=== PATIENT | male | born 1970 | race Two or more races ===

== ENCOUNTER → 2016-12-07 | Outpatient (CLI) | payer BC ==
--- NOTE | 2016-12-07 16:25 | CT ---
EXAMINATION TYPE: CT abdomen pelvis wo con DATE OF EXAM: 12/07/2016 4:18 PM COMPARISON: NONE HISTORY: Bilateral flank pain with hematuria CT DLP: 1002 mGycm FINDINGS: LUNG BASES: No evidence for nodule. No evidence for infiltrate. LIVER/GB: The gallbladder is unremarkable. No space-occupying hepatic lesion. PANCREAS: No pancreatic mass identified. No inflammatory process seen. SPLEEN: No evidence for splenomegaly. No intrasplenic lesions seen. ADRENALS: No adrenal nodules identified. No evidence for thickening. KIDNEYS: Moderate right-sided hydronephrosis secondary to an obstructing proximal right ureteral calc ulus measuring 7.4 cm in greatest transverse dimension. There is an additional calculus noted within the distal right ureter at the level of the pelvic inlet which measures 5.6 mm. Mild right-sided yanira l edema is present. The left kidney is free of hydronephrosis or nephrolithiasis. No renal masses are detected. BOWEL: Appendix has a normal appearance. No evidence of bowel obstruction. No inflammatory process. Lymph nodes: No evidence for adenopathy greater than 1 cm. Abdominal aorta: Atheromatous changes seen. No evidence for aneurysm. Genital organs: No significant abnormality. Other: No significant abnormality. IMPRESSION: 1. MODERATE RIGHT-SIDED HYDRONEPHROSIS SECONDARY TO 2 RIGHT URETERAL CALCULI DISCUSSED ABOVE.
== END | disposition home or self-care (01) ==
LOC: RADCTMAIN 15:45
PROVIDERS: ATTEND Family Medicine
DX: N13.2 Hydronephrosis with renal and ureteral calculous obstruction (principal)
CPT/HCPCS: 74176

== ENCOUNTER → 2016-12-23 | Outpatient (CLI) | payer BC ==
--- NOTE | 2016-12-23 13:14 | XR ---
EXAMINATION TYPE: XR KUB DATE OF EXAM: 12/23/2016 12:31 PM COMPARISON: 12/07/2016 HISTORY: Flank pain TECHNIQUE: One view abdominal series FINDINGS: The osseous structures are intact. The bowel gas pattern is nonspecific. No suspicious calculi in th e pelvis. There is a vague calcific density likely within the proximal right ureter measuring 7 mm in diameter. IMPRESSION: 1. Nonspecific abdomen. Findings suggest questionable 7 mm proximal right ureteral calculus.
== END | disposition home or self-care (01) ==
LOC: RADXRMAIN 12:11
PROVIDERS: ATTEND Urology
DX: N20.1 Calculus of ureter (principal)
CPT/HCPCS: 74000

== ENCOUNTER → 2017-01-11 | Day surgery (SDC) | payer BC ==
[2017-01-07 16:52] VITALS: BMI 28.2
[~2017-01-11] MED LIST: LACTATED RINGERS 1,000 ML IV SCH; LIDOCAINE 1% 20 ML VIAL (10MG/ML) FOR IV START INTRADERMA PRN; Pre Op ABX Message 1 EACH MISC MISCELLANE ONE
[2017-01-11 11:29] VITALS: BP 134/77; PULSE 97; RESP 16; TEMP 98.2
--- NOTE | 2017-01-11 11:55 | XR ---
EXAMINATION TYPE: XR KUB DATE OF EXAM: 01/11/2017 11:11 AM CLINICAL DATA: 46-year-old male status post lithotripsy for right ureteral calculus, LOCATED WITHIN [facility] COMPARISON: 12/23/2016 FINDINGS: Nonobstructive bowel gas pattern. Scattered mild to moderate stool. There is redemonstrated 1 cm calculus in the right paramedian mid abdomen likely in the upper most ri ght ureter. IMPRESSION: 1 cm calculus likely in the upper most right ureter, similar to 12/23/2016.
== END ==
LOC: ORWHC2ENDO 10:54
PROVIDERS: ATTEND Urology
DX: N20.1 Calculus of ureter (principal); Z79.899 Other long term (current) drug therapy
CPT/HCPCS: 74000

== ENCOUNTER → 2017-01-18 | Outpatient (CLI) | payer BC ==
--- NOTE | 2017-01-18 13:19 | XR ---
EXAMINATION TYPE: XR KUB DATE OF EXAM: 01/18/2017 1:14 PM COMPARISON: 01/11/2017, CT scan 12/08/1999 HISTORY: Right ureteral calculus post lithotripsy TECHNIQUE: One view abdominal series FINDINGS: The osseous structures are intact. The bowel gas pattern is nonspecific. Arthropathy of the hip join ts noted. No definite sizable calcification seen. IMPRESSION: 1. Nonspecific abdomen. No definite sizable calcifications identified.
== END | disposition home or self-care (01) ==
LOC: RADXRMAIN 12:58
PROVIDERS: ATTEND Urology
DX: N20.0 Calculus of kidney (principal)
CPT/HCPCS: 74000

== ENCOUNTER → 2017-03-23 | Outpatient (CLI) | payer BC ==
[2017-03-23 08:48] LABS: CH 28.9; CHCM 32.6; HCT 48.1 % (39.0-53.0); HDW 2.45; HGB 15.7 gm/dL (13.0-17.5); MCHC 32.6 g/dL (31.0-37.0); MCV 89.1 fL (80.0-100.0); Mean Platelet Volume 7.2; RDW 13.7 % (11.5-15.5); WBC 7.6 k/uL (3.8-10.6)
[2017-03-23 11:32] LABS: ALT 57 U/L (21-72); AST 44 U/L (17-59); Alkaline Phosphatase 74 U/L (38-126); Anion Gap 12 mmol/L; Blood Urea Nitrogen 12 mg/dL (9-20); Calcium 9.4 mg/dL (8.4-10.2); Carbon Dioxide 24 mmol/L (22-30); Chloride 103 mmol/L (98-107); Glucose 161 mg/dL (74-99); Non-African American GFR(MDRD) >60 (>60 ml/min/1.73 sqM); Potassium 4.4 mmol/L (3.5-5.1); Sodium 139 mmol/L (137-145); Total Bilirubin 0.6 mg/dL (0.2-1.3); Total Protein 6.8 g/dL (6.3-8.2)
[2017-03-23 11:50] LABS: Follicle Stimulating Hormone <0.7 mIU/mL (1.6-9.7); Prolactin 27.4 ng/mL (3.7-17.9)
== END | disposition home or self-care (01) ==
LOC: LABWHC1 07:46
PROVIDERS: ATTEND Internal Medicine Endocrinology, Diabetes & Metabolism
DX: E29.1 Testicular hypofunction (principal); R53.83 Other fatigue
CPT/HCPCS: 36415; 80053; 82533; 82728; 83001; 83002; 84146; 84443; 85027

== ENCOUNTER → 2017-04-02 | Outpatient (CLI) | payer BC | END | disposition home or self-care (01) | LOC: LABWHC1 12:10 | PROVIDERS: ATTEND Internal Medicine Endocrinology, Diabetes & Metabolism | DX: R53.83 Other fatigue (principal) | CPT/HCPCS: 36415; 84146 ==

== ENCOUNTER → 2017-08-03 | Outpatient (CLI) | payer BC ==
[2017-08-03 07:58] LABS: CH 27.7; CHCM 31.1; HCT 48.2 % (39.0-53.0); HDW 2.35; HGB 15.1 gm/dL (13.0-17.5); Hypochromasia Slight; MCH 28.1 pg (25.0-35.0); MCHC 31.4 g/dL (31.0-37.0); MCV 89.6 fL (80.0-100.0); Mean Platelet Volume 7.6; RBC 5.38 m/uL (4.30-5.90); RDW 14.8 % (11.5-15.5); WBC 6.5 k/uL (3.8-10.6)
[2017-08-03 09:08] LABS: ALT 92 U/L (21-72); AST 54 U/L (17-59); Alkaline Phosphatase 75 U/L (38-126); Anion Gap 10 mmol/L; Blood Urea Nitrogen 19 mg/dL (9-20); Calcium 9.6 mg/dL (8.4-10.2); Carbon Dioxide 27 mmol/L (22-30); Chloride 105 mmol/L (98-107); Cholesterol 175 mg/dL (<200); Glucose 108 mg/dL (74-99); HDL Cholesterol 47 mg/dL (40-60); Non-African American GFR(MDRD) >60 (>60 ml/min/1.73 sqM); Potassium 4.7 mmol/L (3.5-5.1); Sodium 142 mmol/L (137-145); Total Bilirubin 0.4 mg/dL (0.2-1.3); Total Protein 7.1 g/dL (6.3-8.2)
[2017-08-03 09:35] LABS: Prostate Specific Antigen 0.75 ng/mL (0.00-4.00)
== END | disposition home or self-care (01) ==
LOC: LABWHC1 07:22
PROVIDERS: ATTEND Internal Medicine Endocrinology, Diabetes & Metabolism
DX: E29.1 Testicular hypofunction (principal); R73.03 Prediabetes
CPT/HCPCS: 36415; 80053; 80061; 83036; 84153; 84403; 85027

== ENCOUNTER → 2017-10-19 | Outpatient (CLI) | payer BC ==
[2017-10-19 11:58] LABS: ALT 83 U/L (21-72); AST 55 U/L (17-59); Albumin 4.6 g/dL (3.5-5.0); Alkaline Phosphatase 70 U/L (38-126); Anion Gap 10 mmol/L; Blood Urea Nitrogen 22 mg/dL (9-20); Calcium 9.8 mg/dL (8.4-10.2); Carbon Dioxide 30 mmol/L (22-30); Chloride 104 mmol/L (98-107); Cholesterol 184 mg/dL (<200); Glucose 103 mg/dL (74-99); HDL Cholesterol 48 mg/dL (40-60); LDL Cholesterol,Calculated 112 mg/dL (0-99); Sodium 144 mmol/L (137-145); Total Bilirubin 0.5 mg/dL (0.2-1.3); Total Protein 7.8 g/dL (6.3-8.2); Triglycerides 118 mg/dL (<150)
[2017-10-19 12:14] LABS: HCT 53.5 % (39.0-53.0); HGB 16.4 gm/dL (13.0-17.5); Hypochromasia Slight; MCH 27.6 pg (25.0-35.0); MCHC 30.6 g/dL (31.0-37.0); Mean Platelet Volume 7.9; Platelet Count 259 k/uL (150-450); RBC 5.94 m/uL (4.30-5.90); RDW 13.9 % (11.5-15.5); WBC 7.1 k/uL (3.8-10.6)
[2017-10-19 12:29] LABS: Prostate Specific Antigen 0.32 ng/mL (0.00-4.00)
[2017-10-19 17:01] LABS: Hepatitis A Ab, Total Reactive (Non-Reactive); Hepatitis B Surface AB- Quant 3.5 mIU/mL
[2017-10-19 17:32] LABS: Parathyroid Hormone Intact 74.7 pg/mL (14.0-72.0)
[2017-10-19 21:41] LABS: Hemoglobin A1C 5.9 % (4.0-6.0)
== END | disposition home or self-care (01) ==
LOC: LABWHC1 11:07
PROVIDERS: ATTEND Internal Medicine Endocrinology, Diabetes & Metabolism
DX: N20.0 Calculus of kidney (principal); E29.1 Testicular hypofunction; F34.1 Dysthymic disorder; R73.03 Prediabetes; R07.9 Chest pain, unspecified
CPT/HCPCS: 36415; 80053; 80061; 83036; 83970; 84153; 84260; 84403; 84481; 85027; 86704; 86706; 86708

== ENCOUNTER → 2017-10-19 | Outpatient (CLI) | payer BC ==
--- NOTE | 2017-10-19 12:29 | XR ---
EXAMINATION TYPE: XR abdomen 1V DATE OF EXAM: 10/19/2017 COMPARISON: 09/07/2017 HISTORY: Renal stones TECHNIQUE: One view abdominal series FINDINGS: The osseous structures are intact. The bowel gas pattern is nonspecific. Right kidney: No suspicious calcifications. Left kidney: No suspicious calcifications. Pelvis: There is a stable appearing 7 x 3 mm calcification right hemipelvis compatible with distal ri ght ureteral calculus unchanged in position or morphology. Arthropathy of the hips and hypertrophic change of the spine. IMPRESSION: 1. Stable 7 x 3 mm distal right ureteral calculus at the level of the UVJ unchanged in size or positi on from recent exam..
== END | disposition home or self-care (01) ==
LOC: RADXRMAIN 12:04
PROVIDERS: ATTEND Urology
DX: N20.2 Calculus of kidney with calculus of ureter (principal)
CPT/HCPCS: 74018

== ENCOUNTER → 2017-10-25 | Outpatient (CLI) | payer BC ==
--- NOTE | 2017-10-25 12:34 | EST ---
EXERCISE STRESS AGE: 47 SEX: M HT: 66" WT: 172 PROTOCOL: Kenton Stress Test STAGE: 3 DURATION OF EXERCISE: 8:00 HEART RATE REST: 94 BLOOD PRESSURE REST: 113/85 MAXIMUM HEART RATE ACHIEVED: 158 MAXIMUM BLOOD PRESSURE: 182/71 85% MPHR: 146 100% MPHR: 172 METS: 9.7 INDICATIONS: Chest pain. CLINICAL INFORMATION: STRESS DATA: Pretesting physical examination showed a heart rate 94, pressure is 113/85 mmHg. Baseline EKG showed sinus rhythm. The patient exercised on the treadmill according to Kenton protocol for a total of 8 minutes and achieved 9.7 METS. Max heart rate was 158 which is about 92% of maximum predicted heart rate. Maximum blood pressure was 182/71 mmHg. Clinically, the patient did not have symptoms of chest pain or discomfort and the EKG did not show any significant ST or T-wave abnormalities consistent with ischemia. CONCLUSION: 1. Excellent exercise capacity. 2. Normal EKG in response to exercise. 3. Essentially normal stress test for the patient. MMODL / IJN: [id number] /
== END | disposition home or self-care (01) ==
LOC: RADNMMAIN 10:27
PROVIDERS: ATTEND Family Medicine
DX: R07.9 Chest pain, unspecified (principal)
CPT/HCPCS: 93017

== ENCOUNTER → 2018-04-07 | Outpatient (CLI) | payer BC ==
[2018-04-07 09:02] LABS: HCT 50.9 % (39.0-53.0); HGB 16.6 gm/dL (13.0-17.5); MCH 28.2 pg (25.0-35.0); MCHC 32.6 g/dL (31.0-37.0); MCV 86.5 fL (80.0-100.0); Mean Platelet Volume 6.5; Platelet Count 228 k/uL (150-450); RBC 5.88 m/uL (4.30-5.90); WBC 7.7 k/uL (3.8-10.6)
[2018-04-07 11:32] LABS: ALT 84 U/L (21-72); AST 56 U/L (17-59); Albumin 4.1 g/dL (3.5-5.0); Alkaline Phosphatase 76 U/L (38-126); Anion Gap 8 mmol/L; Blood Urea Nitrogen 15 mg/dL (9-20); Calcium 9.4 mg/dL (8.4-10.2); Carbon Dioxide 27 mmol/L (22-30); Chloride 105 mmol/L (98-107); Cholesterol 191 mg/dL (<200); Glucose 106 mg/dL (74-99); HDL Cholesterol 45 mg/dL (40-60); LDL Cholesterol,Calculated 121 mg/dL (0-99); Potassium 4.9 mmol/L (3.5-5.1); Sodium 140 mmol/L (137-145); Total Bilirubin 0.6 mg/dL (0.2-1.3); Total Protein 6.9 g/dL (6.3-8.2); Triglycerides 126 mg/dL (<150)
[2018-04-07 11:55] LABS: Prostate Specific Antigen 0.95 ng/mL (0.00-4.00)
[2018-04-07 15:47] LABS: Vitamin D 25 Hydroxy 27.8 ng/mL (30.0-100.0)
== END | disposition home or self-care (01) ==
LOC: LABWHC1 08:28
PROVIDERS: ATTEND Internal Medicine Endocrinology, Diabetes & Metabolism
DX: E29.1 Testicular hypofunction (principal); N20.0 Calculus of kidney
CPT/HCPCS: 36415; 80053; 80061; 82306; 83970; 84153; 84403; 85027

== ENCOUNTER → 2018-09-30 | Outpatient (CLI) | payer BC ==
--- NOTE | 2018-09-30 09:13 | XR ---
EXAMINATION TYPE: XR abdomen 1V DATE OF EXAM: 09/30/2018 COMPARISON: 10/19/2017 HISTORY: Pain history of stones TECHNIQUE: One view abdominal series FINDINGS: The osseous structures are intact. The bowel gas pattern is nonspecific. Calcification along the rig ht hemipelvis is no longer identified. Right kidney: There is retained debris overlying right kidney from the colon however, there is suspic ion of a 8 mm calcification along the upper pole right kidney. Left kidney: No suspicious calcification seen by standard x-ray. Hypertrophic changes of the vertebral column is noted and there is arthropathy of the hip joints. IMPRESSION: 1. Interval resolution of the right hemipelvic calcification. 2. Although evaluation of the right upper quadrant is limited due to bowel content there is suspicion for an 8 mm upper pole right renal calculus.
== END | disposition home or self-care (01) ==
LOC: RADXRMAIN 08:40
PROVIDERS: ATTEND Urology
DX: N20.0 Calculus of kidney (principal)
CPT/HCPCS: 74018

== ENCOUNTER → 2018-10-11 | Outpatient (CLI) | payer BC ==
[2018-10-11 10:21] LABS: Basophils % (A) 0 %; Eosinophils # (A) 0.1 k/uL (0-0.7); Eosinophils % (A) 2 %; HGB 15.7 gm/dL (13.0-17.5); Lymphocytes # (A) 2.3 k/uL (1.0-4.8); Lymphocytes % (A) 26 %; MCH 28.5 pg (25.0-35.0); MCHC 32.6 g/dL (31.0-37.0); MCV 87.2 fL (80.0-100.0); Mean Platelet Volume 7.1; Monocytes # (A) 0.7 k/uL (0-1.0); Monocytes % (A) 8 %; Neutrophils # (A) 5.3 k/uL (1.3-7.7); Neutrophils % (A) 61 %; Platelet Count 250 k/uL (150-450); RBC 5.51 m/uL (4.30-5.90); RDW 13.9 % (11.5-15.5); WBC 8.8 k/uL (3.8-10.6)
[2018-10-11 10:29] LABS: Appearance,Urine Clear (Clear); Bilirubin,Urine Negative (Negative); Blood,Urine Negative (Negative); Color,Urine Yellow; Glucose,Urine (UA) Negative (Negative); Ketones,Urine Negative (Negative); Leukocyte Esterase,Urine Trace (Negative); Mucus,Urine Rare /hpf; Nitrite,Urine Negative (Negative); PH, Urine 5.5 (5.0-8.0); Protein,Urine 1+ (Negative); RBC,Urine 1 /hpf (0-5); Specific Gravity,Urine 1.019 (1.001-1.035); Squamous Epithelial Cell,Urine 1 /hpf (0-4); Urobilinogen,Urine <2.0 mg/dL (<2.0); WBC,Urine 9 /hpf (0-5)
[2018-10-11 10:40] LABS: Blood Urea Nitrogen 17 mg/dL (9-20)
== END | disposition home or self-care (01) ==
LOC: LABWHC1 09:48
PROVIDERS: ATTEND Urology
DX: Z01.812 Encounter for preprocedural laboratory examination (principal); N20.0 Calculus of kidney
CPT/HCPCS: 36415; 81001; 82565; 84520; 85025

== ENCOUNTER 2018-10-17 07:33 | Day surgery (SDC) | payer BC ==
[2018-10-14 09:37] VITALS: BMI 28.3
--- NOTE | 2018-10-16 19:13 | P.GSHP ---
History of Present Illness H&P Date: 10/16/18 $8 yo male with a painful 8mm right renal stone who comes for eswl right The risks alternatives have been discussed. - Review of Systems All systems: negative - Genitourinary (Male) Genitourinary: Reports as per HPI Past Medical History Past Medical History: Hyperlipidemia Additional Past Medical History / Comment(s): RT URETERAL CALCULI. History of Any Multi-Drug Resistant Organisms: None Reported Past Surgical History: No Surgical Hx Reported Additional Past Surgical History / Comment(s): LITHOTRIPSY Past Anesthesia/Blood Transfusion Reactions: No Reported Reaction Additional Past Anesthesia/Blood Transfusion Reaction / Comment(s): NO PREVIOUS ANESTHESIA. Smoking Status: Never smoker - Past Family History Mother Family Medical History: No Reported History Medications and Allergies Home Medications Medication Instructions Recorded Confirmed Type Cholestrol Pill 1 each PO DAILY 10/14/18 History Allergies Allergy/AdvReac Type Severity Reaction Status Date / Time No Known Allergies Allergy Verified 10/14/18 09:33 Surgical - Exam - General well developed, well nourished, no distress - Eyes PERRL - ENT no hearing loss - Neck trachea midline - Respiratory normal expansion, normal respiratory effort - Cardiovascular Rhythm: regular - Abdomen Abdomen: soft, non tender - Genitourinary normal penis with no external lesions, testicles present - Integumentary no rash, no growths - Neurologic normal coordination, normal sensation - Musculoskeletal normal gait, normal posture - Psychiatric oriented to time, oriented to person, oriented to place, speech is normal, memory intact Results - Imaging Abdominal x-ray: report reviewed, image reviewed Assessment and Plan Assessment: Impression: RIght renal stone[8mm] Plan ESWL right
[~2018-10-17 07:33] MED LIST changes: -LIDOCAINE 1% 20 ML VIAL (10MG/ML) FOR IV START INTRADERMA PRN
[2018-10-17 07:58] VITALS: RESP 16; TEMP 98.3
--- NOTE | 2018-10-17 07:59 | XR ---
EXAMINATION TYPE: XR abdomen 1V DATE OF EXAM: 10/17/2018 CLINICAL DATA: 48-year-old male with stones, [facility] COMPARISON: 09/30/2018 FINDINGS: Supine imaging limited for assessment of free intraperitoneal air. Mild oral stool burden. No dilated bowel loops. Bowel content partially obscures the right kidney. No suspicious calcification seen by radiographs. IMPRESSION: No definite suspicious calcifications are radiographically apparent. Bowel content obscures much of t he right renal shadow.
[2018-10-17] MEDS ORDERED: LIDOCAINE 1% 20 ML VIAL (10MG/ML) FOR IV START INTRADERMA ONE (08:08)
--- NOTE | 2018-10-17 08:32 | P.OP ---
Date of Procedure: 10/17/18 Preoperative Diagnosis: Right renal stone Postoperative Diagnosis: Stone gone Procedure(s) Performed: None Anesthesia: none Surgeon: Yahir Cannon Pathology: none sent Condition: stable Disposition: same day Indications for Procedure: The patient has an 8 mm right renal stone. It is not seen well on the preoperative KUB today. He has not had any pain to suggest that he has passed. There Is a lot of stool in his colon. Description of Procedure: The patient is brought to the lithotripsy table before anesthetic. We attempted thoroughly to fluoroscope his right kidney but do not see any evidence of stone. There is somewhat stool overlying the right kidney from the right colon that no stone can be seen. The procedure is canceled.
[2018-10-17 08:36] VITALS: BP 156/84; PULSE 86
== END 2018-10-17 08:48 | disposition home or self-care (01) ==
LOC: ORWHC2ENDO 07:33
PROVIDERS: ATTEND Urology
DX: N20.0 Calculus of kidney (principal); Z53.8 Procedure and treatment not carried out for other reasons; E78.5 Hyperlipidemia, unspecified; Z79.899 Other long term (current) drug therapy
CPT/HCPCS: 74018

== ENCOUNTER → 2019-05-03 | Outpatient (CLI) | payer BC ==
[2019-05-03 09:24] LABS: HGB 15.3 gm/dL (13.0-17.5); MCH 28.2 pg (25.0-35.0); MCHC 31.8 g/dL (31.0-37.0); MCV 88.7 fL (80.0-100.0); Mean Platelet Volume 7.3; Platelet Count 242 k/uL (150-450); RBC 5.41 m/uL (4.30-5.90); RDW 14.9 % (11.5-15.5); WBC 8.4 k/uL (3.8-10.6)
[2019-05-03 18:04] LABS: African American GFR (CKD) 120.7 (60.0-200.0); Albumin 4.4 g/dL (3.80-4.90); Albumin/Globulin Ratio 2.1 (1.60-3.17); Anion Gap 8.3 mmol/L (4.00-12.00); Calcium 9.5 mg/dL (8.7-10.3); Carbon Dioxide 27.7 mmol/L (21.6-31.8); Globulin 2.1 g/dL (1.6-3.3); LDL Cholesterol,Calculated 113.4 mg/dL (0.0-131.0); Potassium 4.7 mmol/L (3.5-5.5); Total Bilirubin 0.5 mg/dL (0.2-1.2); Total Protein 6.5 g/dL (6.2-8.2); VLDL Calculation 27.6 mg/dL (5.00-40.00)
[2019-05-03 18:43] LABS: Hemoglobin A1C 6.5 % (4.0-6.0)
== END | disposition home or self-care (01) ==
LOC: LABWHC1 08:23
PROVIDERS: ATTEND Internal Medicine Endocrinology, Diabetes & Metabolism
DX: E29.1 Testicular hypofunction (principal); E11.9 Type 2 diabetes mellitus without complications; N20.0 Calculus of kidney
CPT/HCPCS: 36415; 80053; 80061; 82043; 82570; 83036; 83970; 84153; 84403; 84443; 85027

== ENCOUNTER → 2019-10-24 | Outpatient (CLI) | payer BC ==
[2019-10-24 07:41] LABS: HCT 53.3 % (39.0-53.0); HGB 16.8 gm/dL (13.0-17.5); MCH 27.4 pg (25.0-35.0); MCHC 31.4 g/dL (31.0-37.0); Mean Platelet Volume 7.3; Platelet Count 268 k/uL (150-450); RBC 6.12 m/uL (4.30-5.90); RDW 13.5 % (11.5-15.5); WBC 6.8 k/uL (3.8-10.6)
[2019-10-24 18:03] LABS: Urine Creatinine 120.5 mg/dL
[2019-10-24 18:13] LABS: African American GFR (CKD) 120.7 (60.0-200.0); Albumin 4.2 g/dL (3.80-4.90); Albumin/Globulin Ratio 2.21 (1.60-3.17); Anion Gap 9.5 mmol/L (4.00-12.00); BUN/Creat Ratio 18.75 Ratio (12.00-20.00); Calcium 9.2 mg/dL (8.7-10.3); Carbon Dioxide 24.5 mmol/L (21.6-31.8); Chol/HDL Ratio 4.04; Globulin 1.9 g/dL (1.6-3.3); LDL Cholesterol,Calculated 126.6 mg/dL (0.0-131.0); Non-African American GFR(CKD) 104.2 (60.0-200.0); Potassium 4.5 mmol/L (3.5-5.5); Total Bilirubin 0.4 mg/dL (0.2-1.2); Total Protein 6.1 g/dL (6.2-8.2); VLDL Calculation 22.4 mg/dL (5.00-40.00)
[2019-10-24 19:34] LABS: Hemoglobin A1C 6.5 % (4.0-6.0)
== END | disposition home or self-care (01) ==
LOC: LABWHC1 07:01
PROVIDERS: ATTEND Internal Medicine Endocrinology, Diabetes & Metabolism
DX: E11.9 Type 2 diabetes mellitus without complications (principal); E29.1 Testicular hypofunction
CPT/HCPCS: 36415; 80053; 80061; 82043; 82570; 83036; 84403; 84443; 85027

== ENCOUNTER → 2020-03-21 | Outpatient (CLI) | payer BC ==
--- NOTE | 2020-03-21 10:10 | MR ---
EXAMINATION TYPE: MR lumbar spine wo con DATE OF EXAM: 03/21/2020 COMPARISON: NONE HISTORY: LBP, BLE radic, worse on left x 3 mos, no trauma TECHNIQUE: T1 and T2 axial and sagittal images of the lumbar spine are submitted. FINDINGS: There is no abnormal signal seen within the visualized spinal cord or paraspinal soft tissu es. At L1-2 there is no degenerative disc disease, disc herniation, canal stenosis, or foraminal encroach ment. At L2-3 there is no degenerative disc disease, disc herniation, canal stenosis, or foraminal encroach ment At L3-4 there is no degenerative disc disease, disc herniation, canal stenosis, or foraminal encroach ment mild circumferential disc bulging with ligamentum flavum hypertrophy results in borderline canal stenosis. At L4-5 there is disc desiccation with broad-based disc bulging greater paracentrally to the left. Hy pertrophic change and ligamentum flavum and facet joints result in mild canal stenosis. Mild bilatera l foraminal encroachment greater on the left. At L5-S1 there is disc desiccation with broad-based central disc bulging or protrusion. Mild bilatera l foraminal encroachment. No Canal stenosis. IMPRESSION: 1. Mild multilevel degenerative disc disease with disc bulging at L3-4, L4-5 and L5-S1. Findings resu lt in borderline canal stenosis L3-L4 and mild canal stenosis L4-L5 with foraminal encroachment at al l 3 levels. Diminutive spinal canal contributes.
== END | disposition home or self-care (01) ==
LOC: RADMRIMAIN 08:33
PROVIDERS: ATTEND Family Medicine
DX: M48.061 Spinal stenosis, lumbar region without neurogenic claudication (principal); M51.26 Other intervertebral disc displacement, lumbar region; M51.36 Other intervertebral disc degeneration, lumbar region; M51.37 Other intervertebral disc degeneration, lumbosacral region
CPT/HCPCS: 72148

== ENCOUNTER → 2020-04-30 | Outpatient (CLI) | payer BC ==
[2020-04-30 09:44] LABS: HCT 49.7 % (39.0-53.0); HGB 15.9 gm/dL (13.0-17.5); MCH 28.8 pg (25.0-35.0); MCV 90.1 fL (80.0-100.0); Mean Platelet Volume 7.2; Platelet Count 252 k/uL (150-450); RBC 5.52 m/uL (4.30-5.90); RDW 12.9 % (11.5-15.5); WBC 7.3 k/uL (3.8-10.6)
[2020-04-30 17:05] LABS: African American GFR (CKD) 119.9 (60.0-200.0); Albumin 4.4 g/dL (3.80-4.90); Albumin/Globulin Ratio 1.91 (1.60-3.17); Anion Gap 6.2 mmol/L (4.00-12.00); BUN/Creat Ratio 18.75 Ratio (12.00-20.00); Calcium 9.6 mg/dL (8.7-10.3); Carbon Dioxide 27.8 mmol/L (21.6-31.8); Chol/HDL Ratio 3.8; Globulin 2.3 g/dL (1.6-3.3); LDL Cholesterol,Calculated 103.4 mg/dL (0.0-131.0); Non-African American GFR(CKD) 103.4 (60.0-200.0); Potassium 4.5 mmol/L (3.5-5.5); Total Bilirubin 0.4 mg/dL (0.3-1.2); Total Protein 6.7 g/dL (6.2-8.2); VLDL Calculation 25.6 mg/dL (5.00-40.00)
[2020-04-30 17:25] LABS: Prostate Specific Antigen 0.2 ng/mL (0.0-3.5)
[2020-04-30 18:00] LABS: Urine Creatinine 114.6 mg/dL
== END | disposition home or self-care (01) ==
LOC: LABWHC1 08:29
PROVIDERS: ATTEND Internal Medicine Endocrinology, Diabetes & Metabolism
DX: E11.9 Type 2 diabetes mellitus without complications (principal); E29.1 Testicular hypofunction
CPT/HCPCS: 36415; 80053; 80061; 82043; 82533; 82570; 82607; 83036; 84153; 84403; 84443; 85027

== ENCOUNTER → 2020-11-11 | Outpatient (CLI) | payer BC ==
--- NOTE | 2020-11-11 15:03 | XR ---
EXAMINATION TYPE: XR KUB DATE OF EXAM: 11/11/2020 COMPARISON: NONE HISTORY: Pain TECHNIQUE: One view abdominal series FINDINGS: The osseous structures are intact. The bowel gas pattern is nonspecific. Hypertrophic arthropathy of the hips. Correlate for femoral acetabular impingement. Hypertrophic change of the spine. IMPRESSION: 1. Nonspecific abdomen.
== END | disposition home or self-care (01) ==
LOC: RADXRMAIN 12:39
PROVIDERS: ATTEND Urology
DX: N20.0 Calculus of kidney (principal)
CPT/HCPCS: 74018

== ENCOUNTER → 2021-04-10 | Outpatient (CLI) | payer BC ==
[2021-04-10 15:35] LABS: HCT 51.9 % (39.6-50.0); HGB 16.1 g/dL (13.0-17.0); MCV 90.3 fL (80.0-97.0); Mean Platelet Volume 10.5 fL (9.5-12.2); Platelet Count 239 X 10*3/uL (140-440); RBC 5.75 X 10*6/uL (4.40-5.60); RDW 13.6 % (11.5-14.5); WBC 8.66 X 10*3/uL (4.50-10.00)
[2021-04-10 19:13] LABS: Hemoglobin A1C 6.6 % (4.0-6.0)
[2021-04-10 20:26] LABS: African American GFR (CKD) 119.9 (60.0-200.0); Albumin 4.6 g/dL (3.80-4.90); Albumin/Globulin Ratio 1.77 (1.60-3.17); Anion Gap 10.3 mmol/L (4.00-12.00); Calcium 9.4 mg/dL (8.7-10.3); Carbon Dioxide 26.7 mmol/L (21.6-31.8); Chol/HDL Ratio 3.82; Globulin 2.6 g/dL (1.6-3.3); LDL Cholesterol,Calculated 110.6 mg/dL (0.0-131.0); Non-African American GFR(CKD) 103.4 (60.0-200.0); Potassium 4.4 mmol/L (3.5-5.5); Total Bilirubin 0.9 mg/dL (0.2-1.2); Total Protein 7.2 g/dL (6.2-8.2); VLDL Calculation 27.4 mg/dL (5.00-40.00)
[2021-04-10 20:37] LABS: Prostate Specific Antigen 0.4 ng/mL (0.0-3.5)
[2021-04-11 01:05] LABS: Urine Creatinine 294.5 mg/dL
== END | disposition home or self-care (01) ==
LOC: LABWHC1 08:13
PROVIDERS: ATTEND Internal Medicine Endocrinology, Diabetes & Metabolism
DX: E11.9 Type 2 diabetes mellitus without complications (principal); E29.1 Testicular hypofunction; E21.3 Hyperparathyroidism, unspecified; E55.9 Vitamin D deficiency, unspecified
CPT/HCPCS: 36415; 80053; 80061; 82043; 82306; 82570; 83036; 83970; 84153; 84403; 84443; 85027

== ENCOUNTER → 2021-12-16 | Outpatient (CLI) | payer BC ==
--- NOTE | 2021-12-16 13:53 | XR ---
EXAMINATION TYPE: XR KUB DATE OF EXAM: 12/16/2021 COMPARISON: 11/11/2020 HISTORY: Pain TECHNIQUE: One view abdominal series FINDINGS: The osseous structures are intact. The bowel gas pattern is nonspecific. Lung bases are clear. Arthr opathy of the hips. Hypertrophic changes of the spine IMPRESSION: 1. Nonspecific abdomen.
== END | disposition home or self-care (01) ==
LOC: RADXRMAIN 13:29
PROVIDERS: ATTEND Urology
DX: N20.0 Calculus of kidney (principal)
CPT/HCPCS: 74018

== ENCOUNTER → 2022-07-28 | Outpatient (CLI) | payer BC ==
[2022-07-28 14:45] LABS: HGB 15.5 g/dL (13.0-17.0); MCH 28.4 pg (27.0-32.0); MCHC 31.6 g/dL (32.0-37.0); MCV 89.7 fL (80.0-97.0); NRBC Per 100 WBC 0 /100 WBCS (0.0-0.0); Platelet Count 224 X 10*3/uL (140-440); RBC 5.46 X 10*6/uL (4.40-5.60); RDW 13.2 % (11.5-14.5); WBC 8.83 X 10*3/uL (4.50-10.00)
[2022-07-28 14:59] LABS: Chol/HDL Ratio 4.22 Ratio; LDL Cholesterol,Calculated 167.4 mg/dL (0.0-131.0)
== END | disposition home or self-care (01) ==
LOC: LABWHC1 08:24
PROVIDERS: ATTEND Internal Medicine Endocrinology, Diabetes & Metabolism
DX: N20.0 Calculus of kidney (principal); E78.2 Mixed hyperlipidemia; R73.03 Prediabetes; E55.9 Vitamin D deficiency, unspecified
CPT/HCPCS: 36415; 80061; 82043; 82306; 82570; 83036; 83970; 84403; 84443; 85027

== ENCOUNTER → 2023-04-12 | Outpatient (CLI) | payer BC ==
[2023-04-12 16:19] LABS: ALT 56 U/L (10-49); AST 39 U/L (14-35); Albumin 4.4 d/dL (3.8-4.9); Albumin/Globulin Ratio 1.63 Ratio (1.60-3.17); Alkaline Phosphatase 87 U/L (41-126); Blood Urea Nitrogen 15.2 mg/dL (9.0-27.0); Calcium 9.6 mg/dL (8.7-10.3); Carbon Dioxide 26.8 mmol/L (21.6-31.8); Chloride 103 mmol/L (96-109); Chol/HDL Ratio 4.71 Ratio; Globulin 2.7 d/dL (1.6-3.3); Glucose 126 mg/dL (70-110); LDL Cholesterol,Calculated 143.5 mg/dL (0.0-131.0); Potassium 5.1 mmol/L (3.5-5.5); Sodium 140 mmol/L (135-145); Total Bilirubin 0.3 mg/dL (0.3-1.2); Total Protein 7.1 d/dL (6.2-8.2)
== END | disposition home or self-care (01) ==
LOC: LABWHC1 12:04
PROVIDERS: ATTEND Internal Medicine Endocrinology, Diabetes & Metabolism
DX: E11.65 Type 2 diabetes mellitus with hyperglycemia (principal)
CPT/HCPCS: 36415; 80053; 80061; 82043; 82570; 83036; 84443

== ENCOUNTER → 2024-04-17 | Outpatient (CLI) | payer BC ==
[2024-04-17 16:20] LABS: HGB 13.8 g/dL (13.0-17.0); MCH 28.9 pg (27.0-32.0); MCHC 32.1 g/dL (32.0-37.0); Mean Platelet Volume 11.2 FL (9.5-12.2); NRBC Per 100 WBC 0 X 10*3/uL (0.00-0.01); Platelet Count 196 X 10*3/uL (140-440); RBC 4.78 X 10*6/uL (4.40-5.60); RDW 12.9 % (11.5-14.5); WBC 6.33 X 10*3/uL (4.50-10.00)
[2024-04-17 17:39] LABS: ALT 68 U/L (10-49); AST 67 U/L (14-35); Albumin 4.3 g/dL (3.8-4.9); Albumin/Globulin Ratio 1.72 Ratio (1.60-3.17); Alkaline Phosphatase 99 U/L (41-126); BUN/Creat Ratio 17.38 Ratio (12.00-20.00); Blood Urea Nitrogen 13.9 mg/dL (9.0-27.0); Calcium 9.2 mg/dL (8.7-10.3); Carbon Dioxide 23.1 mmol/L (21.6-31.8); Chloride 103 mmol/L (96-109); Chol/HDL Ratio 3.76 Ratio; Globulin 2.5 g/dL (1.6-3.3); Glucose 168 mg/dL (70-110); Potassium 4.3 mmol/L (3.5-5.5); Sodium 139 mmol/L (135-145); Total Bilirubin 0.4 mg/dL (0.3-1.2); Total Protein 6.8 g/dL (6.2-8.2)
[2024-04-17 19:17] LABS: C-Peptide 3.59 ng/mL (0.81-3.85)
== END | disposition home or self-care (01) ==
LOC: LABWHC1 11:09
PROVIDERS: ATTEND Internal Medicine Endocrinology, Diabetes & Metabolism
DX: E11.65 Type 2 diabetes mellitus with hyperglycemia (principal); E29.1 Testicular hypofunction; E55.9 Vitamin D deficiency, unspecified; E21.3 Hyperparathyroidism, unspecified
CPT/HCPCS: 36415; 80053; 80061; 82043; 82306; 82570; 83036; 83970; 84153; 84403; 84443; 84681; 85027